=== PATIENT | female | born 1995 | race Hispanic/Latino ===

== ENCOUNTER 2017-04-27 10:47 | Outpatient (RCR) | payer BC ==
[~2017-04-27 10:47] MED LIST: SYNTHROID100 MCG PO; XOPENEX INHALER
== END 2017-05-02 ==
LOC: PT 10:47
PROVIDERS: ATTEND Specialist
DX: S83.511D Sprain of anterior cruciate ligament of right knee, subsequent encounter (principal); S83.231D Complex tear of medial meniscus, current injury, right knee, subsequent encounter; S83.271D Complex tear of lateral meniscus, current injury, right knee, subsequent encounter; M25.561 Pain in right knee; M25.661 Stiffness of right knee, not elsewhere classified; R26.2 Difficulty in walking, not elsewhere classified; Z47.89 Encounter for other orthopedic aftercare

== ENCOUNTER 2020-07-23 18:41 | Emergency (ER) | payer BC ==
[~2020-07-23] VITALS: Ht 154.9 cm; Wt 89.8 kg
[2020-07-23] MEDS ORDERED: CHARCOAL/SORBITOL LIQD 25 GM/120 ML TUBE NG STA (18:58)
[2020-07-23 19:10] LABS: INR 0.96; PROTHROMBIN TIME 13.3 seconds (11.9-14.5)
[2020-07-23 19:15] LABS: BASOPHILS % 0.4 % (0.0-1.0); EOSINOPHILS # (AUTO) 0.1 (0.0-0.4); EOSINOPHILS % 1.5 % (0.0-6.0); HEMATOCRIT 40.1 % (34.2-44.1); HEMOGLOBIN 12.7 g/dL (12.0-16.0); LYMPHOCYTES # (AUTO) 3.3 (1.0-3.2); LYMPHOCYTES % 38.2 % (18.0-39.1); MEAN CORPUSCULAR HEMOGLOBIN 24.2 pg (28-32); MEAN CORPUSCULAR HGB CONC 31.7 g/dL (31-35); MEAN CORPUSCULAR VOLUME 76.5 fL (81-99); MONOCYTES # (AUTO) 0.4 (0.2-0.8); MONOCYTES % 4.9 % (4.4-11.3); NEUTROPHILS # (AUTO) 4.7 (2.1-6.9); NEUTROPHILS % 54.8 % (38.7-80.0); PLATELET COUNT 183 x10e3/uL (140-360); RED BLOOD COUNT 5.24 x10e6/uL (3.6-5.1); RED CELL DISTRIBUTION WIDTH 13.4 % (11.7-14.4)
[2020-07-23 19:21] LABS: ALANINE AMINOTRANSFERASE 17 IU/L (0-55); ALBUMIN 4.1 g/dL (3.5-5.0); ALKALINE PHOSPHATASE 80 IU/L (40-150); ANION GAP 16.6 mmol/L (8-16); BLOOD UREA NITROGEN 10 mg/dL (7-26); BUN/CREATININE RATIO 13 (6-25); CALCIUM 8.9 mg/dL (8.4-10.2); CARBON DIOXIDE 23 mmol/L (22-29); CHLORIDE 107 mmol/L (98-107); CREATININE, SERUM 0.75 mg/dL (0.57-1.11); EST GLOMERULAR FILTRATION RATE > 60 ML/MIN (60-); GLUCOSE 97 mg/dL (74-118); POTASSIUM 3.6 mmol/L (3.5-5.1); SODIUM 143 mmol/L (136-145)
[2020-07-23 19:40] LABS: SALICYLATE < 5.0 mg/dL (0-30)
[2020-07-23 19:42] LABS: CREATINE KINASE 88 IU/L (29-168)
[2020-07-23 19:59] LABS: AMPHETAMINES SCREEN,URINE NEGATIVE (NEGATIVE); BENZODIAZEPINES SCREEN,URINE NEGATIVE (NEGATIVE); PHENCYCLIDINE SCREEN,URINE NEGATIVE (NEGATIVE); PREGNANCY TEST, URINE NEGATIVE (NEGATIVE)
== END 2020-07-24 07:10 ==
LOC: ER 18:49
DX: T14.91XA Suicide attempt, initial encounter (principal); T39.1X2A Poisoning by 4-Aminophenol derivatives, intentional self-harm, initial encounter; F32.9 Major depressive disorder, single episode, unspecified; F41.9 Anxiety disorder, unspecified; E03.9 Hypothyroidism, unspecified; Z20.822 Contact with and (suspected) exposure to COVID-19
CPT/HCPCS: 36415; 80053; 80307; 80320; 80329 ×2; 81025; 82550; 82553; 84484; 85025; 85610; 93005; 99284; U0002

== ENCOUNTER 2022-08-21 22:04 | Emergency (ER) | payer BC ==
[~2022-08-21] VITALS: Ht 154.9 cm; Wt 89.8 kg
[2022-08-21] MEDS ORDERED: ACETAMINOPHEN 325 MG TAB ONE (22:25)
[2022-08-21] MEDS ORDERED: ACETAMINOPHEN 325 MG TAB PO ONE (22:30)
[2022-08-22 01:50] VITALS: BP 122/78
== END 2022-08-22 01:52 | disposition home or self-care (01) ==
LOC: ER 22:10
DX: R50.9 Fever, unspecified (principal); B34.9 Viral infection, unspecified; E03.9 Hypothyroidism, unspecified; F41.9 Anxiety disorder, unspecified; Z20.822 Contact with and (suspected) exposure to COVID-19
CPT/HCPCS: 83518; 87070; 99282; U0002